=== PATIENT | female | born 1980 | race Two or more races ===

== ENCOUNTER 2024-06-24 17:11 | Emergency (ER) | payer OTHER ==
[~2024-06-24] VITALS: Ht 165.1 cm; Wt 69.9 kg
[2024-06-24] MEDS ORDERED: HYDR-3972 PO (18:24)
[2024-06-24 18:33] VITALS: BP 105/74; TEMP 99.1; O2SAT 97
== END 2024-06-24 18:34 | disposition home or self-care (01) ==
LOC: ER 17:11
DX: S13.4XXA Sprain of ligaments of cervical spine, initial encounter (principal); F32.A Depression, unspecified; V89.0XXA Person injured in unspecified motor-vehicle accident, nontraffic, initial encounter; Y93.89 Activity, other specified; Y92.410 Unspecified street and highway as the place of occurrence of the external cause; Y99.8 Other external cause status
CPT/HCPCS: A4606; A4663